=== PATIENT | male | born 1980 | race Caucasian/White ===

== ENCOUNTER 2020-01-12 21:38 | Inpatient (IN) ==
[2020-01-12 22:10] LABS: URINE SOURCE CLEAN CATCH
[2020-01-12] MEDS ORDERED: NS 1,000 ML IV ONE (22:22)
[2020-01-12] MEDS ORDERED: ZOFRAN IV ONE (22:22)
--- NOTE | 2020-01-12 22:23 | PROVIDER DOCUMENTATION ---
HPI-Abdominal Pain/GI Problem - General Chief Complaint: Nausea/Vomiting Stated Complaint: N/V Time Seen by Provider: 01/12/20 21:50 Source: patient Allergies/Adverse Reactions: Patient Allergies Allergy/AdvReac Type Severity Reaction Status Date / Time No Known Allergies Allergy Verified 01/12/20 22:04 Home Medications: Home Medication List Medication Instructions Recorded Confirmed Last Taken Type NK [No Home Medications] 01/12/20 01/12/20 Unknown History - History of Present Illness-ABD Nature of Presenting Problems: 39 YOM with PMH of hep c and "spot on liver" that was dx at [facility] he has had no treatment for hep c and has not followed up about this "spot" presents with c/o n/v, abdominal pain, unable to tolerate PO intake x 1 week. He reports he does smoke and continues to usee IV heroin and methamphetamines. He is jaundiced on exam but in no acute distress Abdominal Pain Onset Location: reports: generalized abdomen Pain Radiation: reports: LUQ Quality of Pain: reports: aching, cramping, fullness Severity in ED: reports: severe Onset/Duration: reports: 1 week ago Timing: reports: still present Activities at Onset: reports: none Exposure to sick contacts?: No Modifying Factors: worse with: eating, movement, palpation Associated Symptoms: reports: loss of appetite, nausea, vomiting, weakness Last BM: 24 hours ago Dark Stools Present?: reports: none noticed Rectal Bleeding: reports: none Rectal Pain: reports: none Emesis Description: reports: clear Bruising or Bleeding Gums?: No Similar Symptoms Previously?: No Recently seen or treated by another doctor?: No Review of Systems - Adult - REVIEW OF SYSTEMS - ADULT Constitutional: reports: no symptoms reported. denies: see HPI, chills, fever, fatique, night sweats, weight gain, weight loss, other Eyes: reports: no symptoms reported. denies: see HPI, discharge, dry eyes, decreased vision, blurred vision, double vision, eye pain, redness, other Ears, Nose, Mouth & Throat: reports: no symptoms reported. denies: see HPI, ear discharge, ear pain, hearing loss, tinnitus, epistaxis, sinus problem, nose pain, loose teeth, mouth/dental pain, mouth swelling, hoarseness, throat pain, throat swelling, other Cardiovascular: reports: no symptoms reported. denies: see HPI, chest pain, edema, heart murmur, irregular heart rate, orthopnea, palpitations, poor circulation, PND, syncope, other Respiratory: reports: no symptoms reported. denies: see HPI, chronic cough, cough, dyspnea on exertion, excessive sputum production, hemoptysis, pleurisy, shortness of breath, wheezing, other Gastrointestinal: reports: see HPI, abdominal pain, nausea, vomiting. denies: no symptoms reported, hematemesis, constipation, diarrhea, difficulty swallowing, frequent heartburn, poor appetite, rectal bleeding, other Genitourinary: reports: no symptoms reported. denies: see HPI, dysuria, discharge, frequency, flank pain, frequent UTI's, hematuria, hesitency, incontinence, urinary retention, urgency, other Musculoskeletal: reports: no symptoms reported. denies: see HPI, bone pain, back pain, frequent leg cramps, joint pain, joint swelling, muscle aches, muscle weakness, neck pain, other Integumentary: reports: no symptoms reported. denies: see HPI, hives, hair loss, itching, mole changes, nail changes, rash, skin sores/ulcer, skin thickening, other Neurological: reports: no symptoms reported. denies: see HPI, ataxia, dizziness/vertigo, headache/migraines, loss of balance, numbness, paresthesia, seizure, slurred speech, syncope, tremors, other Psychiatric: reports: no symptoms reported. denies: see HPI, anxiety, anti- depressant use, alcohol/drug dependence, depression, emotional problems, insomnia, panic attacks, suicidal thoughts, other Endocrine: reports: no symptoms reported. denies: see HPI, change in skin pigment, excessive sweating, goiter, cold intolerance, heat intolerance, increased hunger, increased thirst, polyuria, other Hematologic/Lymphatic: reports: no symptoms reported. denies: see HPI, blood clots, easy bruising, low blood count, lymphedema, prolonged bleeding, swollen lymph nodes, transfusions, other Allergic/Immunologic: reports: no symptoms reported. denies: see HPI, allergic reactions, allergic rhinitis, asthma, eczema, food allergy, frequent infections, hay fever, hives, positive PPD, urticaria, other Past History - Adult - PAST MEDICAL HISTORY-ADULT Review of Records: reports: Nursing Assessment Review, Social history reviewed & non-contributory. - IMMUNIZATION STATUS Childhood Immunizations: See Nurse Assessment Flu Vaccine: See Nurse Assessment Physical Exam-General - PHYSICAL EXAM-ADULT Initial Vital Signs Reviewed: Yes - CONSTITUTIONAL General Appearance: appears well, alert, no apparent distress - EYES Eyes: PERRL/EOMI, pink conjunctivae - HEAD, EARS, NOSE, MOUTH & THROAT HENMT: normocephalic/atraumatic, moist mucous membranes, normal ENT inspection - NECK Neck: non-tender, full range of motion, supple - RESPIRATORY Respiratory: chest non-tender, lungs clear, normal breath sounds, no pleuratic chest pain, no respiratory distress, no accessory muscle use - CARDIOVASCULAR Cardiovascular: normal peripheral pulses, regular rate, rhythm, no edema, no gallop, no JVD, no murmur - GASTROINTESTINAL (ABDOMEN) Abdominal Exam: soft, tenderness, hepatomegaly - LYMPHATIC Lymphatic: no adenopathy - MUSCULOSKELETAL Back Exam: normal inspection, no CVA tenderness, no vertebral tenderness Extremity: normal range of motion, non-tender, normal gait Peripheral Pulses: radial (R): 2+, radial (L): 2+ - SKIN Integumentary: normal turgor, warm/dry, jaundice - NEUROLOGIC Neurologic: grossly normal. negative: abnormal gait, aphasia, facial droop - PSYCHIATRIC Psych/Mental Status: normal mood/affect, oriented x 3 Progress - PLAN OF CARE/RESULTS Progress/Plan/Lab Results: Vital Signs - 8 hr 01/12/20 21:39 Temperature 98.3 F Pulse Rate 75 Respiratory Rate 20 Blood Pressure 125/72 O2 Sat by Pulse Oximetry 100 Laboratory Results - last 24 hr 01/12/20 22:02 Urine Source CLEAN CATCH Orders Category Date Time Status Saline Loc NOW Care 01/12/20 21:51 Active CBC WITH ELECTRONIC DIFF [HEME] Stat Lab 01/12/20 21:51 Uncollected COMPREHENSIVE METABOLIC PANEL [CHEM] Stat Lab 01/12/20 21:51 Uncollected LIPASE [CHEM] Stat Lab 01/12/20 21:51 Uncollected UA NIMS W/REFLEX CULT [URINALYSIS] Stat Lab 01/12/20 22:02 Results d/w patient to admit for uncontrolled n/v and ct in AM, pt agrees Result Diagrams: 01/12/20 22:47 01/12/20 22:47 - REASSESSMENT Reassessment #1 Time Reassessed: 23:43 Status: improving - CONSULTS/PCP/HOSPITALIST Notification #1 *Consult/PCP/Hospitalist*: Dr. Snowden Time Discussed: 23:45 Consult Disposition: other (Rec CT and then will consider admission. rec outpatient unless concerning findings on CT) #2 Consult: d/w Dr Snowden Time Discussed: 02:45 Consult Disposition: Admit (for observation) - CHANGE OF SHIFT REPORT (ED Provider) 1 Report Given and Care Transferred to:: Dr. Machado Time of Transfer: 23:46 Items Pending: CT/MRI Results (admit v home) Departure - Departure Date of Disposition Decision: 01/12/20 Time of Disposition Decision: 23:42 DIAGNOSIS: Transaminitis, Uncontrollable nausea and vomiting, Drug abuse and dependence Disposition: ADMITTED INPATIENT 09 Certified Medical Emergency: Emergent Condition: Stable - Critical Care Note This patient required my direct & personal management of CC.: No Attestation - Physician/ SADE Attestation Patient care was provided by Advanced Practice Provider:: Yes Advanced Practice Provider:: Angela Ledesma Advanced Practice Provider documentation review:: The Mid-level provider documentation, treatment plan and medical decision making was reviewed by the physician who agrees with all treatment and medical decision making by the [facility]. The physician spent face to face time with patient:: No Advanced Practice Provider documentation review:: Supervising physician onsite and consulted in the evaluation and care of this patient. The physician did not have a face to face encounter with the patient.
[2020-01-12 22:31] LABS: BILIRUBIN URINE MODERATE (NEGATIVE); BLOOD URINE NEGATIVE (NEGATIVE); COLOR YELLOW; GLUCOSE URINE NEGATIVE (NEGATIVE); KETONE URINE NEGATIVE (NEGATIVE); LEUKOCYTES URINE NEGATIVE (NEGATIVE); NITRITE URINE NEGATIVE (NEGATIVE); PROTEIN URINE TRACE mg/dL (NEGATIVE); SP GRAVITY URINE 1.025; TURBIDITY URINE CLEAR (CLEAR); UROBILINOGEN URINE 2 mg/dL (NORMAL)
[2020-01-12 22:34] LABS: UR EPITHELIAL CELLS <10 /HPF (<10); URINE BACTERIA NEGATIVE /HPF; URINE RBC <10 /HPF (<10); URINE WBC <10 /HPF (<10)
[2020-01-12 22:58] LABS: URINE CASTS NONE SEEN; URINE CRYSTALS CA CARBONATE PRESENT; URINE SMALL ROUND CELLS NONE SEEN; URINE YEAST NONE SEEN
[2020-01-12 23:21] LABS: BASO# 0.07 X1000 (0.0-0.2); BASO% 0.7 % (0.0-0.8); EOS# 0.33 X1000 (0.0-0.7); EOS% 3.3 % (0.0-10.0); HEMATOCRIT 37.5 % (42.0-52.0); HEMOGLOBIN 12.5 g/dL (14.0-18.0); IMM GRAN# 0.02 X1000 (0.0-0.04); IMM GRAN% 0.2 % (0.0-0.5); LYMPH# 2.55 X1000 (1.2-3.4); LYMPH% 25.7 % (20.5-51.1); MCH 31.4 PG (27-31); MCHC 33.3 g/dL (33-37); MCV 94.2 FL (81-99); MONO# 0.67 X1000 (0.11-0.59); MONO% 6.8 % (1.7-9.3); MPV 11.1 FL (7.4-10.4); NEUT# 6.27 X1000 (1.4-6.5); NEUT% 63.3 % (42.2-75.2); PLT 267 X1000 (130-400); RBC 3.98 XMIL (4.7-6.1); RDW 18.5 % (11.5-14.5); WBC 9.91 X1000 (4.8-10.8)
[2020-01-12 23:36] LABS: AGAP 10; ALBUMIN 3.9 g/dL (3.5-5.0); ALKALINE PHOSPHATASE 186 U/L (32-122); BUN 8 mg/dL (8-22); CALCIUM 8.7 mg/dL (8.8-10.2); CHLORIDE 102 mmol/L (98-107); COSMO 272; CREATININE 0.6 mg/dL (0.7-1.2); ESTIMATED GFR > 60; GLUCOSE 136 mg/dL (70-104); GOT 623 U/L (10-34); LIPASE 30 U/L (13-60); POTASSIUM 4.1 mmol/L (3.5-5.1); SODIUM 136 mmol/L (136-145); TCO2 24 mmol/L (25-35); TOTAL BILIRUBIN 6.89 mg/dL (0.20-1.00); TOTAL PROTEIN 7.8 g/dL (6.3-8.3)
[2020-01-12 23:59] LABS: GPT 788 U/L (10-44)
[2020-01-13 00:44] LABS: UR AMPHETAMINES QUAL PRESUMPTIVE POSITIVE (NONE DETECT); UR BARBITUATES QUAL NONE DETECTED (NONE DETECT); UR BENZODIAZEPIN QUAL NONE DETECTED (NONE DETECT); UR CANNABINOIDS QUAL PRESUMPTIVE POSITIVE (NONE DETECT); UR COCAINE QUAL PRESUMPTIVE POSITIVE (NONE DETECT); UR METHADONE QUAL NONE DETECTED (NONE DETECT); UR OPIATES QUAL PRESUMPTIVE POSITIVE (NONE DETECT); UR OXYCODONE QUAL NONE DETECTED (NONE DETECT); UR PCP QUAL NONE DETECTED (NONE DETECT)
[2020-01-13] MEDS ORDERED: ZOFRAN IV PRN (03:30)
--- NOTE | 2020-01-13 03:45 | HISTORY AND PHYSICAL ---
PRIMARY CARE PROVIDER: None. CHIEF COMPLAINT: Nausea, vomiting, turning yellow color for the past week. HISTORY OF PRESENTING ILLNESS: A 39-year-old male with a history of hepatitis C diagnosed about a year ago who presented to the emergency department with a one week history of having nausea, vomiting, and also having yellowish discoloration of his skin. The patient states that he was not feeling well and subsequently had come to the emergency department. In the ED he was evaluated, he had laboratories drawn which did show markedly elevated liver enzymes. Due to suspicion of acute hepatitis, he will need admission for further management. At the time of my examination the patient denied any headache, fever, chills, chest pain, shortness of breath, hemoptysis or any weight changes, but complained of nausea, vomiting and not feeling well. PAST MEDICAL HISTORY: Includes hepatitis C diagnosed 1 year ago at [facility]. PAST SURGICAL HISTORY: None. ALLERGIES: No known drug allergies. CURRENT MEDICATIONS: None. SOCIAL HISTORY: A 20+ pack-year history of smoking. Denies any history of alcohol use. Admits to IV drug use, mostly heroin. FAMILY HISTORY: No history of coronary disease. REVIEW OF SYSTEMS: A 14-point review of systems is listed as in the HPI, other systems negative. PHYSICAL EXAMINATION: GENERAL: A cooperative friendly male. He is resting more comfortably now. VITAL SIGNS: Temperature is 98.3 degrees, pulse 75, respirations 20, blood pressure is 125/72. HEENT: Atraumatic, normocephalic. Extraocular movements intact. PERRLA. No scleral icterus. NECK: No masses. CHEST: Clear to auscultation. CARDIOVASCULAR: Regular rate and rhythm. ABDOMEN: Soft. Positive bowel sounds. EXTREMITIES: No edema. NEUROLOGIC: He is awake, alert and oriented x3. : No bladder distention. SKIN: He is jaundiced. LABORATORIES AND STUDIES: WBC is 9.91, hemoglobin 12.5, hematocrit 37.5, platelets 267,000. Sodium 136, potassium 4.1, chloride 102, CO2 is 24, BUN is 8, creatinine is 0.6, glucose is 136, bilirubin is 6.89, AST is 623, ALT is 788, alkaline phosphatase is 186. ASSESSMENT: A 39-year-old male with a history of hepatitis C diagnosed 1 year ago who had presented to the emergency department with a 1-week history of having nausea, vomiting and being jaundiced. He was evaluated in the ED and due to his presenting symptoms we will place him for observation for further evaluation and management. ASSESSMENT: 1. Suspected acute hepatitis. 2. IV drug abuse. PLAN: 1. We will admit the patient to medical floor. 2. We will check a hepatitis profile and an abdominal ultrasound. 3. We will consult Gastroenterology. 4. I counseled the patient on drug cessation. 5. We will continue to follow, reassess and make further recommendations based on the patient's clinical course. cc: Jordan Snowden MD
--- NOTE | 2020-01-13 07:07 | Diag Imaging Result Doc PS360 ---
CT ABD/PELVIS W/IV CONT ONLY - 01/12/2020 INDICATION: abd pain COMPARISON: None FINDINGS: The lung bases are clear and the heart size is normal. There is significant periportal edema throughout the liver, nonspecific. There is mild splenomegaly. The gallbladder is collapsed with nonspecific wall thickening. No biliary dilation. No free fluid. Other abdominal organs are normal. There is mild retroperitoneal lymphadenopathy. There is severe diffuse constipation. No bowel obstruction or inflammation. Normal appendix. Urinary bladder and prostate are normal. Bones are intact and well mineralized. IMPRESSION: 1. Severe diffuse constipation. 2. Periportal edema throughout the liver, nonspecific. This can represent rapid hydration or hepatitis. 3. Mild retroperitoneal lymphadenopathy, nonspecific. 4. Gallbladder wall thickening, nonspecific. This exam was performed using automated exposure control, adjustment of mA or kV according to patient size, and/or use of iterative reconstruction technique Electronically signed by Peewee Hidalgo 01/13/2020 7:04 AM
--- NOTE | 2020-01-13 09:21 | Diag Imaging Result Doc PS360 ---
US ABDOMEN-COMPLETE - 01/13/2020 INDICATION: Elevated LFT COMPARISON: CT from 01/13/2020 FINDINGS: The gallbladder is collapsed. There is a tiny gallstone in the gallbladder. There is significant gallbladder wall thickening. No biliary dilation. There is a small hyperechoic nodule in the liver measuring about 2 cm. This is compatible with a benign liver hemangioma. Background liver echotexture is normal. The pancreas, spleen, and both kidneys are normal. Spleen size is 11.4 x 11.2 x 6.2 cm. Aorta, IVC, and main portal vein are patent. Common bile duct measures 3 mm. IMPRESSION: 1. Collapsed gallbladder. Nonspecific gallbladder wall thickening. Tiny gallstone. Overall suggestive of chronic cholecystitis. Correlate clinically. Consider a HIDA scan for further evaluation. 2. Small benign hemangioma in the liver. Electronically signed by Peewee Hidalgo 01/13/2020 9:19 AM
[2020-01-13 11:09] LABS: HEPATITIS PROFILE ACUTE SEE COMMENTS
[2020-01-13] MEDS: ATIVAN IV PRN ×2 (12:36→20:36)
--- NOTE | 2020-01-13 16:03 | Diag Imaging Result Doc PS360 ---
EXAM: HIDA SCAN W/O EJECT. FRACTION INDICATION: gallbladder dz TECHNIQUE: 5.4 mCi of technetium 99 Choletec was administered intravenously and images were obtained in usual fashion after administration. COMPARISON: None. FINDINGS: There was normal immediate hepatocellular uptake after administration of the radiotracer. Activity is seen in small bowel beginning at about 20 minutes post administration. After 120 minutes, there was still no gallbladder activity and most of the radiotracer within the small bowel. Therefore and ejection fraction could not be performed and the study was terminated. IMPRESSION: Nonfilling of the gallbladder with radiotracer. This can be seen with either acute or chronic cholecystitis. It can also be artifactual due to nonfasting or prolonged fasting prior to the study. Please correlate clinically. Electronically signed by Blane Porter 01/13/2020 4:01 PM
--- NOTE | 2020-01-13 16:27 | PROGRESS NOTE ---
DATE: 01/13/2020 SUBJECTIVE: Patient has no major complaints. He has been very agitated today, but has responded well to Ativan. OBJECTIVE: Blood pressure is 114/69, heart rate of 64, respiratory rate 18, temperature 97.7 degrees 93% on room air.Cardiovascular: Regular rate and rhythm. Pulmonary: Bilateral breath sounds clear to auscultation. GI: Soft, nontender, nondistended. Bowel sounds are positive. LABORATORY: I do not have any new chemistries. His serologies though show hepatitis B surface antigen positivity with a positive hepatitis B surface antigen, retest hepatitis B core antibody IgM positivity which could suggest acute hepatitis B or acute on chronic. Hepatitis C antibody is also positive, but we do not know if it is active. His hepatitis A test is negative. His HIDA scan was also positive. There was nonfilling of the gallbladder. PROBLEM LIST: Acute hepatitis, which is most likely viral hepatitis. He may either have acute hepatitis B or convalescing hepatitis B acutely or possibly hepatitis B with hepatitis C. He is an IV drug user, so he is at risk for both. His HIDA is abnormal, but I am not sure if that really is an active issue. We will get a surgical opinion, but I doubt they will do anything acutely unless he has any other changes. Apparently, he has had hepatitis C exposure in the past, so it is possible he is either convalescent from that or not. Hepatitis C viral load is pending. We will continue hydration and support. cc: Kristian Garcia MD
--- NOTE | 2020-01-13 16:39 | GASTROENTEROLOGY CONSULTATION ---
DATE: 01/13/2020 REASON FOR CONSULTATION: Elevated liver function tests, nausea, vomiting, jaundice. HISTORY OF PRESENT ILLNESS: This is a 39-year-old male who reports onset of symptoms about a week ago. He had noticed yellowing of his skin. He had nausea and vomiting and has been unable to eat much. On evaluation he was found to have elevated liver function test, also noted to be jaundiced. Hepatitis profile was ordered and has returned back today results showing reactive hepatitis B surface antigen, reactive hepatitis B core antibody and reactive hepatitis C antibody, nonreactive hepatitis A viral antibody. The patient states he was diagnosed with hepatitis C about a year ago and was seen at [facility]. He also had an apparent spot on his liver but he did not follow back with [facility]. Patient does admit to IV drug use and continues to use IV drugs. He has been held NPO. Patient has reported going through withdrawal symptoms and he has medication ordered for withdrawals. At the time of the visit, the patient was also seen by Dr. Pascual. The patient denies fever, chest pain or shortness of breath. PAST MEDICAL HISTORY: Hepatitis C diagnosed about 1 year ago at [facility], the patient has not been treated for hepatitis C. PAST SURGICAL HISTORY: None reported. ALLERGIES: None reported. HOME MEDICATIONS: None listed. No home medications reported. SOCIAL HISTORY: He smokes cigarettes daily. No reported alcohol use. He does admit to IV drug use, mostly heroin. REVIEW OF SYSTEMS: Per history of present illness. PHYSICAL EXAMINATION: Vital Signs: Temperature 97.7 degrees, pulse 64, respirations 18, blood pressure 117/69. General: Patient is awake and alert, in no acute distress. At present time no noted withdrawals. Patient has Ativan ordered. He has received medication for nausea and vomiting. Skin: Noted to be jaundice. Other physical exam unremarkable. DIAGNOSTIC RESULTS: Laboratory. Hematology. WBC 9.91, hemoglobin 12.5, hematocrit 37.5, MCV 94.2, platelet 267,000. Chemistry. Sodium 136, potassium 4.1, chloride 102, CO2 24, BUN 8, creatinine 0.6, glucose 136, calcium 8.7, total bilirubin 6.89, AST 623, ALT 788, alkaline phosphatase 186, lipase 30. Urinalysis showing trace protein and moderate bilirubin. Toxicology presumptive positive for opioids, amphetamines, cocaine and cannabinoids. Serology. Hepatitis profile showed hepatitis B surface antigen reactive, hepatitis B core antibody reactive, hepatitis C antibody reactive and hepatitis A acute viral antibody nonreactive. Imaging. Abdominal pelvis CT scan showed severe diffuse constipation, periportal edema around the liver, mild retroperitoneal lymphadenopathy, gallbladder wall thickening. Abdominal ultrasound showed collapsed gallbladder, nonspecific gallbladder wall thickening and a tiny gallstone. Also noted a small benign hemangioma in the liver. Patient has had a HIDA scan with results not posted as of yet. ASSESSMENT AND PLAN: 1. Elevated liver function tests. 2. Hepatitis B reactive and hepatitis C reactive, hepatitis A nonreactive. 3. Intravenous drug use. Patient has been counseled on cessation. 4. Jaundice. 5. Nausea, vomiting. 6. We will add additional serology for hepatitis B quantitative viral load and hepatitis B e- antigen and antibody. We will follow up results on the HIDA scan that has been done. Continue symptomatic treatment and continue DT precautions. Strongly encouraged drug use cessation. Patient states he plans to quit now. We will continue to follow and further plans will be made as needed. Repeat liver function tests tomorrow. Patient was also seen by Dr. Pascual. Thank you for this consultation. Dictated by MARYAM Aponte for Delano Pascual MD cc: MARYAM Medrano MD Pt seen available data reviewed. Acute on chronic hepatitis. Acute Hep B with underlying Chronic Hep C Does not appear to be in Liver failure or in Fulminant hepatitis. Cont. supportive care and DT precaution. will follow peripherally and call us with any questions. Delano Pascual M.D. [facility]
[2020-01-13] MEDS: NS 1,000 ML IV SCH (18:16)
[2020-01-14] MEDS: NS 1,000 ML IV SCH ×3 (02:56→15:53)
[2020-01-14 05:42] LABS: HEMATOCRIT 37.6 % (42.0-52.0); HEMOGLOBIN 12.6 g/dL (14.0-18.0); LYMPH# 1.29 X1000 (1.2-3.4); LYMPH% 14.5 % (20.5-51.1); MCH 30.8 PG (27-31); MCHC 33.5 g/dL (33-37); MCV 91.9 FL (81-99); MONO# 0.15 X1000 (0.11-0.59); MONO% 1.7 % (1.7-9.3); MPV 10.9 FL (7.4-10.4); NEUT# 7.44 X1000 (1.4-6.5); NEUT% 83.8 % (42.2-75.2); PLT 349 X1000 (130-400); RBC 4.09 XMIL (4.7-6.1); RDW 17.7 % (11.5-14.5); WBC 8.88 X1000 (4.8-10.8)
[2020-01-14 05:57] LABS: ALB/GLOB RATIO 0.9; ALBUMIN 3.4 g/dL (3.5-5.0); DIRECT BILIRUBIN 3.8 mg/dL (0.00-0.20); TOTAL BILIRUBIN 7.06 mg/dL (0.20-1.00); TOTAL PROTEIN 7.3 g/dL (6.3-8.3)
[2020-01-14 05:59] LABS: AGAP 13; BUN 13 mg/dL (8-22); CALCIUM 9.1 mg/dL (8.8-10.2); CHLORIDE 102 mmol/L (98-107); COSMO 278; CREATININE 0.6 mg/dL (0.7-1.2); ESTIMATED GFR > 60; GLUCOSE 147 mg/dL (70-104); SODIUM 138 mmol/L (136-145); TCO2 23 mmol/L (25-35)
--- NOTE | 2020-01-14 11:22 | GENERAL SURGERY CONSULTATION ---
DATE: 01/14/2020 REQUESTING PHYSICIAN: Dr. Garcia. REASON FOR CONSULTATION: Consult concerning possible cholecystitis. HISTORY OF PRESENT ILLNESS: A 39-year-old gentleman with a history of hepatitis C diagnosed a year ago, who presented to the emergency department with a week history of a long history of nausea, vomiting, and jaundice. He had been seen in the emergency department and had imaging including ultrasound and a CT scan. The CT scan seems to suggest more of an issue with his liver but his gallbladder was severely contracted on the ultrasound. He did have a HIDA scan that did not show prompt uptake in his gallbladder but he does have significant elevation in his bilirubin and his liver function tests. I suspect there is a possibility that this test might not be accurate at the moment. The patient does report some discomfort but was not very talkative during my evaluation so he did not give any further symptoms. PAST MEDICAL HISTORY: Includes hepatitis C. PAST SURGICAL HISTORY: None. ALLERGIES: None. CURRENT MEDICATIONS: Reviewed. SOCIAL HISTORY: There is 20+ years of smoking. Does report IV drug abuse and heroin. His urinalysis was positive for multiple things. FAMILY HISTORY: Reviewed with patient and noncontributory. REVIEW OF SYSTEMS: A full 14 systems were reviewed and negative except as specified in the HPI. PHYSICAL EXAMINATION: Vital Signs: The patient is currently afebrile. His vital signs are stable. General Examination: No acute distress. Alert, interactive, male. Looks stated age. HEENT: Normocephalic, atraumatic. Pupils equal, round, reactive to light. Some scleral icterus noted. Oropharynx benign. Neck: Supple. Trachea midline. Cardiovascular: Regular rate and rhythm. Lungs: Grossly clear. Abdomen: Soft. No real tenderness. No distention. Extremities: Moves all extremities. Neurologic: Grossly intact. Skin: Positive for jaundice. Vascular: All extremities perfused. LABORATORY: White blood cell count is normal, hematocrit is normal, platelet count is normal. There is a slight left shift. Bilirubin is 7, AST 284, ALT 504, alkaline phosphatase 166. Imaging reviewed and noted above. ASSESSMENT AND PLAN: A 39-year-old gentleman with likely hepatitis. Hepatitis. At this time, I suspect it is causing his imaging to be abnormal. I do not clinically suspect that he has cholecystitis and regardless, would like to see his liver function tests improve before we talk about any kind of surgical intervention. His bilirubin is elevated but his alkaline phosphatase is not as elevated, so I do not think he has a common bile duct obstruction. Gastroenterology has already been consulted. From my point of view, he has more of a hepatic injury pattern of his labs and less of a cholestatic pattern. I will follow with you while he is in the hospital but no immediate plans for surgical intervention. cc: Kevin De La Fuente MD MTDD
--- NOTE | 2020-01-14 13:26 | GASTROENTEROLOGY PROGRESS NOTE ---
DATE: 01/14/2020 SUBJECTIVE: The patient's lab work results and HIDA scan results were reviewed with Dr. Pascual. The patient has had slight improvement in his liver function tests today, except for bilirubin slightly increased. Today, total bilirubin is 7.06, AST 284, ALT 504, alkaline phosphatase 166. He had a HIDA scan done on 01/13/2020 that showed nonfilling of the gallbladder. The patient has been seen by [facility]. There are no current plans for surgical intervention at this time. HIDA scan results could be false due to current hepatitis and elevated bilirubin. OBJECTIVE: Vital Signs: Temperature is 97.9 degrees, pulse 62, respirations 16, blood pressure 115/57. IMAGING AND LABORATORY DATA: Hematology: WBC 8.88, hemoglobin 12.6, hematocrit 37.6, MCV 91.9. Chemistry: Sodium 138, potassium 4.0, chloride 102, CO2 of 23, BUN 13, creatinine 0.6, glucose 147. Total bilirubin 7.06, AST 284, ALT 504, alkaline phosphatase 166. HIDA scan results show nonfilling of the gallbladder. ASSESSMENT AND PLAN: 1. Elevated liver function tests. Some improvement today. 2. Elevated bilirubin. 3. Acute hepatitis. Hepatitis C was reactive. Hepatitis B surface antigen and core antibody reactive. Waiting on further serology test for hepatitis B. 4. History of drug use. Strongly encouraged cessation. The patient is receiving as needed medication for possible delirium tremens. Continue symptomatic treatment and supportive care. I will repeat his liver function tests tomorrow. Waiting on further hepatitis B testing. 5. HIDA scan showing nonfilling of the gallbladder, possibly related to his hepatobiliary injury and elevated bilirubin. Will continue to follow. I have discussed this case with Dr. Pascual. Dictated by MARYAM Aponte for Delano Pascual MD cc: MARYAM Medrano MD
[2020-01-14] MEDS ORDERED: LOMOTIL PO PRN (16:01)
--- NOTE | 2020-01-14 16:15 | PROGRESS NOTE ---
DATE: 01/14/2020 SUBJECTIVE: The patient has no major complaints. OBJECTIVE: Vital Signs: Blood pressure is 115/57, heart rate 62, respiratory rate 16, temperature 97.9 degrees, 98% on room air. Cardiovascular: Regular rate and rhythm. Pulmonary: Bilateral breath sounds clear to auscultation. Gastrointestinal: Abdomen soft, nontender, nondistended. Bowel sounds are positive. He is still fairly jaundiced. LABORATORY DATA: White count is 8, hemoglobin and hematocrit 12 and 37, platelets of 349,000, T bilirubin 7, most of it is indirect interestingly enough. AST and ALT are down to 284 and 504. PROBLEM LIST: 1. Acute hepatitis, which at this point is likely acute hepatitis B in the setting of possible chronic hepatitis C. We are still waiting for all the serologies to come together. Numbers are improving. HIDA was abnormal, but in the setting of acute hepatitis, it is not clear what to do about that. We will have to re-evaluate that at some point. He has no gallstones. 2. Polysubstance abuse. Aware of diagnosis. We will continue p.r.n. medications for withdrawal and follow. DISPOSITION: Hopefully can discharge in the next couple days if improving. Just waiting on serologies. He will need to follow up with GI for convalescence titers to see if he will need treatment for chronic hepatitis C or chronic hepatitis B. cc: Kristian Garcia MD
[2020-01-14 17:58] VITALS: BP 115/57
[2020-01-15 08:53] LABS: HCV BY PCR SEE COMMENTS
== END 2020-01-14 19:55 | disposition left against medical advice (07) | DRG 443 ==
LOC: 1N 21:38 → ED 21:38 → SUATTDRO 01-13 03:21 → OBSVTOIN 01-13 03:21
PROVIDERS: ATTEND Internal Medicine